=== PATIENT | male | born 1955 | race Caucasian/White ===

== ENCOUNTER 2021-05-30 13:11 | Emergency (ER) | payer MEDICARE, BC, SELFPAY ==
[2021-05-30 13:35] VITALS: BP 124/78; PULSE 62; RESP 15; TEMP 37; O2SAT 98; BMI 26.6
--- NOTE | 2021-05-30 13:40 | XR_ITS ---
WS: [id number] Right knee, 3 views, 05/30/2021 Clinical Data: pain Comparison: None. Findings: No fractures or dislocations are seen. The joint spaces are normal. The patella is intact. The soft t issues are unremarkable. XR/XR knee RT 3V* [id number] Impression: Negative right knee. Kellgren-Hugo Classification: grade 0 (none): definite absence of x-ray la nena nges of osteoarthritis
--- NOTE | 2021-05-30 13:48 | ED_ITS ---
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 Complains about right knee pain MD Complaint: joint pain Onset (ago): minute(s) Pain Consistency: constant Location: right and lower extremity Severity scale (1-10): 4 Quality: aching Radiation: proximal Relieving factors: immobilization Exacerbating factors: weight bearing Associated symptoms: Reports no associated symptoms; Deny chest pain, fever(s) or rash Review of Systems Const: Denies: fever(s), chills or body aches Eyes: Denies: change in vision or blurry vision ENMT: Denies: throat pain or nasal congestion Card: Denies: chest pain or dyspnea on exertion Resp: Denies: dyspnea, productive cough or non-productive cough GI: Denies: abdominal pain, nausea or vomiting : Denies: difficulty urinating Musc: Reports: joint pain; Denies: extremity pain or joint swelling Skin/Breast: Denies: rash Neuro: Denies: headache(s) Psych: Denies: anxiety or depression Farzad/Lymph: Denies: easy bruising Physical Exam Const: COMMON NORMALS: no acute distress, average body habitus and patient oriented x3 HENMT: COMMON NORMALS: normocephalic HEAD & SCALP: normal to inspection and normocephalic FACE & SINUS: normal facial exam Eye: COMMON NORMALS: conjunctivae normal GENERAL EYE: appearance normal, both eyes and all related structures CONJUNCTIVA: Yes conjunctivae normal Neck/C-Spine: COMMON NORMALS: no JVD Chest: COMMONS NORMALS: normal inspection of the chest Resp: COMMON NORMALS: normal respiratory effort and clear to auscultation bilaterally AUSCULTATION: clear to auscultation bilaterally Cardio: COMMON NORMALS: no JVD, regular rate and regular rhythm RATE: regular rate RHYTHM: regular rhythm GI: COMMON NORMALS: Normal to inspection, nondistended, normoactive bowel sounds present Extremity: COMMON NORMALS: normal to inspection RIGHT LOWER EXTREMITY: Yes knee joint (Pain with hyperextension. No swelling noted. Otherwise good range of elaine) Neuro: COMMON NORMALS: patient oriented x3 Course Vital Signs: Vital signs: Vital Signs Temperature 98.6 F 05/30/21 13:35 Pulse Rate 62 05/30/21 13:35 Respiratory Rate 15 05/30/21 13:35 Blood Pressure 124/78 05/30/21 13:35 Pulse Oximetry 98 05/30/21 13:35 Coding Level of Care Code ED Inspector [employer] for Sangeeta Yu
== END 2021-05-30 14:44 | disposition home or self-care (01) ==
LOC: ER 14:18
PROVIDERS: Emergency Provider Nurse Practitioner Family
DX: M25.561 Pain in right knee (principal)
CPT/HCPCS: 73562; 99283; E0114